=== PATIENT | female | born 1970 ===

== ENCOUNTER 2020-12-02 09:09 | Day surgery (SDC) | payer BC, OTHER ==
[~2020-12-02 09:09] MED LIST: Dexamethasone 4 MG/ML 5 ML MDV ONE; Glycopyrrolate 0.2 MG/ML SDV ONE; Lidocaine 2% 5 ML SDV ONE; Midazolam 1 MG/ML 2 ML SDV ONE; Ondansetron 4 MG/2 ML SDV ONE; Propofol 200 MG/20 ML SDV ONE; Rocuronium Bromide 50 MG/5 ML Syringe ONE; Sodium Chloride 0.9% 10 ML SDV IV PRN; Sodium Chloride 0.9% 10 ML Syringe FLUSH PRN; Sodium Chloride 0.9% 2.5 ML Syringe FLUSH PRN; ceFAZolin 1 GM in Premix Bag 1 BAG IV ONE; fentaNYL 250 MCG/5 ML SDV ONE
[2020-12-02] MEDS ORDERED: Bupivacaine 0.25% 10 ML SDV ONE (09:16)
[2020-12-02] MEDS ORDERED: Octyl 2-Cyanoacrylate 1 Tube ONE (09:16)
[2020-12-02] MEDS ORDERED: Fluorescein 5 ML Vial ONE (09:16)
[2020-12-02] MEDS ORDERED: Methylene Blue 50 MG/10 ML Ampule ONE (09:16)
--- NOTE | 2020-12-02 09:39 | PCM.PREANE ---
Preanesthetic Assessment - Anesthesia/Transfusion/Family Hx Anesthesia History: Prior Anesthesia Without Reaction Family History of Anesthesia Reaction: No Transfusion History: Prior Transfusion Without Reaction - Review of Systems General: No Symptoms Pulmonary: No Symptoms Cardiovascular: No Symptoms Gastrointestinal: No Symptoms Neurological: No Symptoms Other: Reports: None - Physical Assessment NPO Status Date: 12/01/20 Vital Signs: Last Vital Signs Temp 98.4 F 12/02/20 09:15 Pulse 81 12/02/20 09:15 Resp 16 12/02/20 09:15 BP 135/71 12/02/20 09:15 Pulse Ox 99 12/02/20 09:15 Height: 5 ft 2 in Weight: 76.657 kg ASA Class: 2 Mental Status: Alert & Oriented x3 Airway Class: Mallampati = 2 Dentition: Reports: Edentulous ROM/Head Extension: Full Lungs: Clear to Auscultation, Normal Respiratory Effort Cardiovascular: Regular Rate, Regular Rhythm - Lab Values: Laboratory Last Values SARS-CoV-2 RNA (ARNIE) NEGATIVE (NEGATIVE) 12/02/20 08:10 - Allergies Allergies/Adverse Reactions: Allergies Allergy/AdvReac Type Severity Reaction Status Date / Time No Known Allergies Allergy Verified 11/26/20 11:25 - Blood Blood Available: Yes - Anesthesia Plan Pre-Op Medication Ordered: None - Acknowledgements Anesthesia Type Planned: General Anesthesia Pt an Appropriate Candidate for the Planned Anesthesia: Yes Alternatives and Risks of Anesthesia Discussed w Pt/Guardian: Yes Pt/Guardian Understands and Agrees with Anesthesia Plan: Yes PreAnesthesia Questionnaire HEENT History: Reports: Other (See Below) Other HEENT History: has upper and lower dentures Gastrointestinal History: Reports: None 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: Psychiatric History: Reports: Anxiety - Past Surgical History Head Surgeries/Procedures: Reports: None GI Surgical History: Reports: Bariatric Procedure Female Surgical History: Reports: Section, Salpingo-Oophorectomy - SUBSTANCE USE Tobacco Use Status *Q: Never Tobacco User Recreational Drug Use History: Yes Recreational Drug Type: Reports: Marijuana/Hashish - HOME MEDS Home Medications: Home Meds Multivitamin 1 tab PO DAILY 11/26/20 [History] Venlafaxine [Effexor XR] 150 mg PO DAILY 11/26/20 [History] - CURRENT (IN HOUSE) MEDS Current Meds: Current Medications Sodium Chloride (Saline Flush) 10 ml FLUSH ASDIRECTED PRN PRN Reason: Keep Vein Open Sodium Chloride (Saline Flush) 2.5 ml FLUSH ASDIRECTED PRN PRN Reason: Keep Vein Open Sodium Chloride (Normal Saline) 10 ml IV ASDIRECTED PRN PRN Reason: IV Use Discontinued Medications Bupivacaine HCl (Sensorcaine-Mpf 0.25%) Confirm Administered Dose 10 ml .ROUTE .STK-MED ONE Stop: 12/02/20 09:17 Dexamethasone (Dexamethasone) Confirm Administered Dose 20 mg .ROUTE .STK-MED ONE Stop: 12/02/20 07:19 Fentanyl (Sublimaze) Confirm Administered Dose 250 mcg .ROUTE .STK-MED ONE Stop: 12/02/20 07:14 Fluorescein Sodium (Ak-Fluor) Confirm Administered Dose 5 ml .ROUTE .STK-MED ONE Stop: 12/02/20 09:17 Glycopyrrolate (Robinul) Confirm Administered Dose 0.4 mg .ROUTE .STK-MED ONE Stop: 12/02/20 07:17 Cefazolin Sodium/Dextrose 1 gm (/ Premix) 50 mls @ 100 mls/hr IV ONETIME ONE Stop: 12/02/20 05:29 Lidocaine (Xylocaine-Mpf 2%) Confirm Administered Dose 5 ml .ROUTE .STK-MED ONE Stop: 12/02/20 07:17 Methylene Blue (Provayblue) Confirm Administered Dose 50 mg .ROUTE .STK-MED ONE Stop: 12/02/20 09:17 Midazolam HCl (Versed 1 Mg/Ml) Confirm Administered Dose 2 mg .ROUTE .STK-MED ONE Stop: 12/02/20 07:13 Octyl Cyanoacrylate (Dermabond Advance) Confirm Administered Dose 1 applic .ROUTE .STK-MED ONE Stop: 12/02/20 09:17 Ondansetron HCl (Zofran) Confirm Administered Dose 4 mg .ROUTE .STK-MED ONE Stop: 12/02/20 07:17 Propofol (Diprivan 20 Ml) Confirm Administered Dose 200 mg .ROUTE .STK-MED ONE Stop: 12/02/20 07:13 Rocuronium Venice (Rocuronium Venice) Confirm Administered Dose 50 mg .ROUTE .STK-MED ONE Stop: 12/02/20 07:17
[2020-12-02] MEDS ORDERED: Lactated Ringers 1,000 ML IV SCH (09:45)
[2020-12-02] MEDS ORDERED: Sodium Chloride 0.9% 20 ML ONE (09:54)
[2020-12-02] MEDS ORDERED: ceFAZolin 1 GM Vial ONE (09:54)
[2020-12-02 10:14] LABS: CARBON DIOXIDE,CO2 23.4 mmol/L (21.0-32.0); POTASSIUM,K 3.9 mmol/L (3.5-5.1)
[2020-12-02] MEDS ORDERED: ePHEDrine 50 MG/ML SDV ONE (10:24)
[2020-12-02] MEDS ORDERED: Furosemide 40 MG/4 ML VIAL ONE ×2 (10:48→11:36)
[2020-12-02] MEDS ORDERED: fentaNYL 100 MCG/2 ML SDV ONE (11:00)
[2020-12-02] MEDS ORDERED: Ketorolac 30 MG/ML SDV ONE (11:46)
[2020-12-02] MEDS ORDERED: Morphine 4 MG/ML Syringe IVPUSH PRN (12:15)
[2020-12-02] MEDS ORDERED: Ketorolac 30 MG/ML SDV IVPUSH ONE (12:15)
[2020-12-02] MEDS ORDERED: Acetaminophen/oxyCODONE 325-5 MG Tab PO PRN (12:15)
[2020-12-02] MEDS ORDERED: Belladonna Alkaloids/Opium 16.2-30 MG Supp RECTAL PRN (12:15)
[2020-12-02] MEDS ORDERED: Promethazine 25 MG/ML SDV IM PRN (12:15)
[2020-12-02] MEDS ORDERED: Ondansetron 4 MG/2 ML SDV IVPUSH PRN (12:15)
--- NOTE | 2020-12-02 12:18 | PCM.OPNOTE ---
- General Post-Op/Procedure Note Date of Surgery/Procedure: 12/02/20 Operative Procedure(s): Laparoscopic assisted vaginal hysterectomy, left salpingectomy, and cystoscopy Findings: Dense uterovesical adhesions present and taken down. Left ovary appeared normal. Bilaterally patent ureters. Pre Op Diagnosis: Menometrorrhagia Post-Op Diagnosis: Same Anesthesia Technique: General ET Tube Primary Surgeon: Dannielle Shell Secondary Surgeon: Maurisio Payne Audio Visual Aide: Maria E Kaur ([id number]) Pathology: Uterus and left fallopian tube Fluid Replacement, Intraop: 1,500 Output, Urine Amount: 60 EBL in mLs: 150 Complications: none known Condition: Stable
[2020-12-02] MEDS: HYDROmorphone 2 MG/ML Syringe IVPUSH ONE ×5 (12:23→12:46)
--- NOTE | 2020-12-02 13:02 | PCM.POSTAN ---
POST ANESTHESIA ASSESSMENT - MENTAL STATUS Mental Status: Alert, Oriented - VITAL SIGNS Vital Signs: Last Vital Signs Temp 36.9 C 12/02/20 09:15 Pulse 72 12/02/20 12:54 Resp 9 L 12/02/20 12:54 BP 145/65 H 12/02/20 12:54 Pulse Ox 100 12/02/20 12:54 - RESPIRATORY Respiratory Status: Respiratory Rate WNL, Airway Patent, O2 Saturation Stable - CARDIOVASCULAR CV Status: Pulse Rate WNL, Blood Pressure Stable - GASTROINTESTINAL GI Status: No Symptoms - PAIN Pain Score: 5 - POST OP HYDRATION Hydration Status: Adequate & Stable - OBSERVATIONS Free Text/Narrative:: No anesthesia complications or concerns noted at this time.
[2020-12-02] MEDS: Lactated Ringers 1,000 ML IV SCH ×2 (13:38→21:35)
--- NOTE | 2020-12-02 16:04 | OR ---
SURGEON: Dannielle Shell M.D. DATE OF PROCEDURE: 12/02/2020 PREOPERATIVE DIAGNOSES: Menometrorrhagia with associated anemia. POSTOPERATIVE DIAGNOSES: Menometrorrhagia with associated anemia. PROCEDURE: Laparoscopic-assisted vaginal hysterectomy, left salpingectomy, cystoscopy, and uterovesical adhesiolysis. PRIMARY SURGEON: Dannielle Shell M.D. ASSISTANTS: 1. MD Elmer. 2. Second assist: Nadira Kaur MS-4. ANESTHESIA: General endotracheal anesthesia. FLUIDS: 1500 mL of crystalloid. ESTIMATED BLOOD LOSS: 150 mL. COMPLICATIONS: None known. FINDINGS: Dense uterovesical adhesions from previous sections. Normal-appearing left ovary. Bilateral patent ureters with cystoscopy. DISPOSITION: The patient to PACU, stable. SPECIMENS: To pathology. DESCRIPTION OF PROCEDURE: Santo is a 50-year-old female who has had difficulties with menometrorrhagia and having significant iron-deficiency anemia. At this time, she would like to proceed with definitive intervention in the form of hysterectomy. Risks of procedure have been discussed. Proper consent obtained. The patient was taken to the operating where she underwent general endotracheal anesthesia, was placed in modified dorsal lithotomy position, and prepped and draped in the usual sterile fashion. SCDs to the lower extremities. Malagon to gravity, backfilled with methylene blue. Received Ancef prophylactically. Time- out was performed. At the time of the time-out being performed, the room humidity was 28%. Speculum was introduced in the vagina. Anterior lip of the cervix was grasped with a single-tooth tenaculum. The cervix gently dilated to 5 mm. HUMI uterine manipulator was now gently placed. Balloon insufflated. Tenaculum and speculum were now removed. Gloves changed. Attention was turned abdominally. Infraumbilically introduced 0.25% Marcaine. Please see nurse's notes for total amount dispensed during the procedure. A 5 mm infraumbilical midline sagittal skin incision was created, dissected down to the level of the fascia with hemostats, and then introducing a 5 mm trocar under direct visualization with laparoscope in place, gently tunneled through the subcutaneous tissue to the level of rectus fascia and through the peritoneum. Pneumoperitoneum was achieved. We could not visualize easily at this point. Therefore, I did place a left upper quadrant trocar after prepping this region with 0.25% Marcaine, creating 5 mm skin incision noting where the midline of the left clavicle was, and having anesthesia placed an OG tube. A Veress needle was introduced. Pneumoperitoneum was achieved, and a 5 mm trocar was introduced. I could more easily see the peritoneal cavity at this time. There was a significant amount of anterior abdominal wall uterine adhesions noted from previous sections. Of note, could more easily see placement from the left and right lower quadrant trocars. These regions were prepped with 0.25% Marcaine. A 5 mm skin incision was made and trocars introduced under direct visualization. To start, initially adhesed the fairly dense omental anterior abdominal wall adhesions that were also involving the uterus. Using LigaSure, I was able to lyse these adhesions, and this made the uterus more mobile. As to be anticipated, there was no right tube or ovary present. The ureters were seen peristalsing well away from operative field. The left fallopian tube was able to be isolated and using LigaSure was able to secure the left fallopian tube and cauterize and transect through the mesosalpinx. At this juncture, I was able to secure the rest of the utero tubo-ovarian pedicle, cauterize and transect, mobilize it through the upper portion of the medial broad ligament, secured this pedicle, cauterized and transected and through the round ligament. At this point, the adhesions were now to this level and performed adhesiolysis using LigaSure, blunt dissection and hydrodissection to mobilize the adhesions from the anterior lower uterine segment and cervical region. I was able to secure 2 further pedicles on the left side before turning attention to the right side. I was able to come down the midline with LigaSure to secure the broad ligament through the round ligament, base of the cardinal ligament, and to the level of the uterosacral ligament on this side. Once again, was able to mobilize adhesions away from the uterine segment. I felt it to be best to actually enter the anterior cul-de-sac vaginally with laparoscopic assistance. Therefore, attention was turned vaginally. A weighted speculum was introduced, anterior Pinetta sidewall retractor. The cervix was now grasped with Jovanny clamps and circumscribed with Bovie cautery. Anterior and posteriorly the overlying mucosa was dissected away from underlying peritoneum. Anterior peritoneum was gently dissected bluntly and with Metzenbaum scissors was able to enter the anterior cul-de-sac, and ensured entry laparoscopically. The bladder appeared to be intact. The bladder was now released as I had them backfilled with methylene blue. The Pinetta mobilized the bladder away from the operative field. The pneumoperitoneum was now able to be released. The remainder of instruments were removed laparoscopically. Posterior peritoneum was tented downward and entered sharply. Longer weighted speculum was replaced with shorter. Uterosacral ligament on each side was secured with Bishop clamps, transected, and suture ligated with 2-0 Vicryl. Further pedicle on either side was able to be secured, transected, and suture ligated. Final pedicle on either side was able to be secured, transected, and suture ligated. The uterus was now able to be removed along with left fallopian tube and handed off to technical data analyst to be sent to Pathology. There was some oozing near the right uterosacral ligament pedicle. This was secured with a 2-0 Vicryl [id number] suture. Hemostasis thereafter evident. The pedicles along the left side appeared hemostatic. The uterosacral ligaments on either side were plicated to the vaginal apex with suture. Attention was now turned to closing the vaginal cuff using 0 Vicryl in continuous running locked fashion. The Malagon catheter balloon was now desufflated. Malagon was removed. Cystoscope was introduced using normal saline as distention media, and IV fluorescein had been introduced. The dome of the bladder was able to be identified. The dome of bladder appeared to be intact, followed down to the level of the trigone. The right ureteral orifice followed by the left ureteral orifice were able to be visualized, and fluorescein-dyed urine was seen streaming from these, helping to ensure ureteral patency. The bladder was now drained. The Malagon catheter was replaced. Vaginal cuff once again inspected, found to be hemostatic. Gloves changed. Attention turned abdominally. The pelvis was once again inspected laparoscopically and copiously irrigated. The pelvis was drained. Relief pressure decreased to 6 mmHg and once again hemostasis evident. The pneumoperitoneum was able to be released. The trocars removed under direct visualization. The trocar skin incisions were now reapproximated using 3-0 Monocryl in subcuticular fashion. Sponge, instrument, and needle counts correct x2. The patient tolerated the procedure well overall. She will go to PACU in stable condition. Specimen to Pathology. MAXWELL / ANTONY /[id number]
[2020-12-02] MEDS ORDERED: Ketorolac 15 MG/ML SDV IVPUSH PRN (18:00)
--- NOTE | 2020-12-02 18:09 | PCM.SN.2 ---
- Free Text/Narrative Note: Doing well overall, tolerating a regular diet. Has some cramping. Urine output is good and VS are reassuring. Expalined intraoperative findings and procedure. Continue postoperative cares. Labs in am, remve frederick in am.
[2020-12-02] MEDS: Acetaminophen/oxyCODONE 325-5 MG Tab PO PRN (18:47)
[2020-12-03] MEDS: Acetaminophen/oxyCODONE 325-5 MG Tab PO PRN ×3 (01:27→09:46)
[2020-12-03 05:57] LABS: BLOOD UREA NITROGEN,BUN 8 mg/dL (7.0-18.0); CHLORIDE,CL 106 mmol/L (98-107); GLUCOSE RANDOM 91 mg/dL (74-106); POTASSIUM,K 4.6 mmol/L (3.5-5.1); SODIUM,NA 139 mmol/L (136-145)
--- NOTE | 2020-12-03 08:08 | PCM48HPAN ---
Post Anesthesia Note - EVALUATION WITHIN 48HRS OF ANESTHETIC Vital Signs in Normal Range: Yes Patient Participated in Evaluation: Yes Respiratory Function Stable: Yes Airway Patent: Yes Cardiovascular Function Stable: Yes Hydration Status Stable: Yes Pain Control Satisfactory: Yes Nausea and Vomiting Control Satisfactory: Yes Mental Status Recovered: Yes Vital Signs: Last Vital Signs Temp 36.4 C 12/03/20 07:45 Pulse 77 12/03/20 07:45 Resp 17 12/03/20 07:45 BP 133/85 12/03/20 07:45 Pulse Ox 97 12/03/20 07:45 - COMMENTS/OBSERVATIONS Free Text/Narrative:: No anesthesia complications or concerns noted.
--- NOTE | 2020-12-03 08:28 | PCM.SURGPN ---
- General Info Date of Service: 12/03/20 POD#: 1 Functional Status: Reports: Pain Controlled, Tolerating Diet, Ambulating, Urinating - Review of Systems General: Reports: Fatigue. Denies: Fever, Weakness Pulmonary: Denies: Shortness of Breath Cardiovascular: Denies: Chest Pain, Palpitations, Lightheadedness Gastrointestinal: Reports: Abdominal Pain (mostly cramping). Denies: Nausea, Vomiting Genitourinary: Denies: Flank Pain Musculoskeletal: Reports: No Symptoms Skin: Reports: No Symptoms Neurological: Reports: No Symptoms Psychiatric: Reports: No Symptoms - Patient Data Vitals - Most Recent: Last Vital Signs Temp 36.4 C 12/03/20 07:45 Pulse 77 12/03/20 07:45 Resp 17 12/03/20 07:45 BP 133/85 12/03/20 07:45 Pulse Ox 97 12/03/20 07:45 Weight - Most Recent: 76.657 kg I&O - Last 24 Hours: Intake & Output 12/02/20 12/03/20 12/03/20 22:59 06:59 14:59 Intake Total 350 2436 Output Total 525 2050 Balance -175 386 Lab Results Last 24 Hrs: Laboratory Results - last 24 hr 12/02/20 12/02/20 12/02/20 Range/Units 08:10 09:35 09:35 WBC 5.94 (4.0-11.0) K/uL RBC 5.23 (4.30-5.90) M/uL Hgb 11.8 L (12.0-16.0) g/dL Hct 41.9 (36.0-46.0) % MCV 80.1 (80.0-98.0) fL MCH 22.6 L (27.0-32.0) pg MCHC 28.2 L (31.0-37.0) g/dL RDW Std Deviation 62.1 H (28.0-62.0) fl RDW Coeff of Vikram 22 H (11.0-15.0) % Plt Count 373 (150-400) K/uL MPV 10.50 (7.40-12.00) fL Neut % (Auto) (48.0-80.0) % Lymph % (Auto) (16.0-40.0) % Rogers % (Auto) (0.0-15.0) % Eos % (Auto) (0.0-7.0) % Baso % (Auto) (0.0-1.5) % Neut # (Auto) (1.4-5.7) K/uL Lymph # (Auto) (0.6-2.4) K/uL Rogers # (Auto) (0.0-0.8) K/uL Eos # (Auto) (0.0-0.7) K/uL Baso # (Auto) (0.0-0.1) K/uL Nucleated RBC % 0.0 /100WBC Nucleated RBCs # 0 K/uL Sodium 140 (136-145) mmol/L Potassium 3.9 (3.5-5.1) mmol/L Chloride 106 (98-107) mmol/L Carbon Dioxide 23.4 (21.0-32.0) mmol/L BUN 15 (7.0-18.0) mg/dL Creatinine 1.3 H (0.6-1.0) mg/dL Est Cr Clr Drug Dosing 40.95 mL/min Estimated GFR (MDRD) 43.4 ml/min Glucose 77 (74-106) mg/dL Calcium 9.2 (8.5-10.1) mg/dL SARS-CoV-2 RNA (ARNIE) NEGATIVE (NEGATIVE) Blood Type Antibody Screen 12/02/20 12/03/20 12/03/20 Range/Units 09:35 05:27 05:27 WBC 5.93 (4.0-11.0) K/uL RBC 3.87 L (4.30-5.90) M/uL Hgb 8.9 L (12.0-16.0) g/dL Hct 31.0 L (36.0-46.0) % MCV 80.1 (80.0-98.0) fL MCH 23.0 L (27.0-32.0) pg MCHC 28.7 L (31.0-37.0) g/dL RDW Std Deviation 61.7 (28.0-62.0) fl RDW Coeff of Vikram 22 H (11.0-15.0) % Plt Count 376 (150-400) K/uL MPV 10.80 (7.40-12.00) fL Neut % (Auto) 68.4 (48.0-80.0) % Lymph % (Auto) 20.2 (16.0-40.0) % Rogers % (Auto) 9.6 (0.0-15.0) % Eos % (Auto) 1.5 (0.0-7.0) % Baso % (Auto) 0.3 (0.0-1.5) % Neut # (Auto) 4.1 (1.4-5.7) K/uL Lymph # (Auto) 1.2 (0.6-2.4) K/uL Rogers # (Auto) 0.6 (0.0-0.8) K/uL Eos # (Auto) 0.1 (0.0-0.7) K/uL Baso # (Auto) 0.0 (0.0-0.1) K/uL Nucleated RBC % 0.0 /100WBC Nucleated RBCs # 0 K/uL Sodium 139 (136-145) mmol/L Potassium 4.6 (3.5-5.1) mmol/L Chloride 106 (98-107) mmol/L Carbon Dioxide 28.0 (21.0-32.0) mmol/L BUN 8 (7.0-18.0) mg/dL Creatinine 0.8 (0.6-1.0) mg/dL Est Cr Clr Drug Dosing 66.54 mL/min Estimated GFR (MDRD) > 60.0 ml/min Glucose 91 (74-106) mg/dL Calcium 8.5 (8.5-10.1) mg/dL SARS-CoV-2 RNA (ARNIE) (NEGATIVE) Blood Type A POSITIVE Antibody Screen NEGATIVE Med Orders - Current: Current Medications Belladonna Alkaloids/Opium (B & O Supprettes No. 15a) 1 supp RECTAL Q4H PRN PRN Reason: Abdominal Pain Lactated Ringer's (Ringers, Lactated) 1,000 mls @ 125 mls/hr IV ASDIRECTED [facility] Last Admin: 12/02/20 21:35 Dose: 125 mls/hr Documented by: Ketorolac Tromethamine (Toradol) 15 mg IVPUSH Q6H PRN PRN Reason: Pain (severe 7-10) Last Admin: 12/02/20 22:14 Dose: 15 mg Documented by: Morphine Sulfate (Morphine) 4 mg IVPUSH Q2H PRN PRN Reason: Pain (severe 7-10) Last Admin: 12/02/20 16:18 Dose: 4 mg Documented by: Ondansetron HCl (Zofran) 4 mg IVPUSH Q6H PRN PRN Reason: Nausea/Vomiting Oxycodone/Acetaminophen (Percocet 325-5 Mg) 1 tab PO Q4H PRN PRN Reason: Pain (moderate 4-6) Oxycodone/Acetaminophen (Percocet 325-5 Mg) 2 tab PO Q4H PRN PRN Reason: Pain (moderate 4-6) Last Admin: 12/03/20 05:51 Dose: 2 tab Documented by: Promethazine HCl (Phenergan) 25 mg IM Q6H PRN PRN Reason: Nausea/Vomiting Sodium Chloride (Saline Flush) 10 ml FLUSH ASDIRECTED PRN PRN Reason: Keep Vein Open Sodium Chloride (Saline Flush) 2.5 ml FLUSH ASDIRECTED PRN PRN Reason: Keep Vein Open Sodium Chloride (Normal Saline) 10 ml IV ASDIRECTED PRN PRN Reason: IV Use Discontinued Medications Bupivacaine HCl (Sensorcaine-Mpf 0.25%) Confirm Administered Dose 10 ml .ROUTE .STK-MED ONE Stop: 12/02/20 09:17 Cefazolin Sodium (Ancef) Confirm Administered Dose 1 gm .ROUTE .STK-MED ONE Stop: 12/02/20 09:55 Dexamethasone (Dexamethasone) Confirm Administered Dose 20 mg .ROUTE .STK-MED ONE Stop: 12/02/20 07:19 Ephedrine Sulfate (Ephedrine Sulfate) Confirm Administered Dose 0 mg .ROUTE .STK-MED ONE Stop: 12/02/20 10:25 Fentanyl (Sublimaze) Confirm Administered Dose 250 mcg .ROUTE .STK-MED ONE Stop: 12/02/20 07:14 Fentanyl (Sublimaze) Confirm Administered Dose 100 mcg .ROUTE .STK-MED ONE Stop: 12/02/20 11:01 Fluorescein Sodium (Ak-Fluor) Confirm Administered Dose 5 ml .ROUTE .STK-MED ONE Stop: 12/02/20 09:17 Furosemide (Lasix) Confirm Administered Dose 0 mg .ROUTE .STK-MED ONE Stop: 12/02/20 10:49 Furosemide (Lasix) Confirm Administered Dose 40 mg .ROUTE .STK-MED ONE Stop: 12/02/20 11:37 Glycopyrrolate (Robinul) Confirm Administered Dose 0.4 mg .ROUTE .[facility]-MED ONE Stop: 12/02/20 07:17 Hydromorphone HCl (Dilaudid) 2 mg IVPUSH ONETIME ONE Stop: 12/02/20 12:15 Last Admin: 12/02/20 12:46 Dose: 0.4 mg Documented by: Lactated Ringer's (Ringers, Lactated) 1,000 mls @ 100 mls/hr IV ASDIRECTED RAJAN Last Admin: 12/02/20 09:30 Dose: 100 mls/hr Documented by: Sodium Chloride (Normal Saline) Confirm Administered Dose 20 mls @ as directed .ROUTE .[facility]-MED ONE Stop: 12/02/20 09:55 Cefazolin Sodium/Dextrose 1 gm (/ Premix) 50 mls @ 100 mls/hr IV ONETIME ONE Stop: 12/02/20 05:29 Last Admin: 12/02/20 19:03 Dose: Not Given Documented by: Ketorolac Tromethamine (Toradol) Confirm Administered Dose 30 mg .ROUTE .ST-MED ONE Stop: 12/02/20 11:47 Ketorolac Tromethamine (Toradol) 30 mg IVPUSH ONETIME ONE Stop: 12/02/20 12:16 Last Admin: 12/02/20 14:13 Dose: 15 mg Documented by: Lidocaine (Xylocaine-Mpf 2%) Confirm Administered Dose 5 ml .ROUTE .ST-MED ONE Stop: 12/02/20 07:17 Methylene Blue (Provayblue) Confirm Administered Dose 50 mg .ROUTE .ST-MED ONE Stop: 12/02/20 09:17 Midazolam HCl (Versed 1 Mg/Ml) Confirm Administered Dose 2 mg .ROUTE .ST-MED ONE Stop: 12/02/20 07:13 Octyl Cyanoacrylate (Dermabond Advance) Confirm Administered Dose 1 applic .ROUTE .ST-MED ONE Stop: 12/02/20 09:17 Ondansetron HCl (Zofran) Confirm Administered Dose 4 mg .ROUTE .ST-MED ONE Stop: 12/02/20 07:17 Propofol (Diprivan 20 Ml) Confirm Administered Dose 200 mg .ROUTE .ST-MED ONE Stop: 12/02/20 07:13 Rocuronium Temple (Rocuronium Temple) Confirm Administered Dose 50 mg .ROUTE .STK-MED ONE Stop: 12/02/20 07:17 - Exam Wound/Incisions: Healing Well General: Alert, Oriented Lungs: Normal Respiratory Effort Cardiovascular: Regular Rate, Regular Rhythm GI/Abdominal Exam: Normal Bowel Sounds, Soft. No: Guarding, Rigid, Rebound Extremities: Pedal Edema (trace). No: Trang's Sign Skin: Warm, Dry, Intact Neurological: No New Focal Deficit Psy/Mental Status: Alert, Normal Affect, Normal Mood Sepsis Event Note - Evaluation Sepsis Screening Result: No Definite Risk - Focused Exam Vital Signs: Vital Signs Temp Pulse Resp BP Pulse Ox 12/03/20 07:45 36.4 C 77 17 133/85 97 12/03/20 04:17 36.6 C 72 18 122/73 98 12/03/20 01:32 36.8 C 71 17 139/58 L 98 - Problem List & Annotations (1) Status post hysterectomy SNOMED Code(s): 816784619, 503100798, 205172128 Code(s): Z90.710 - ACQUIRED ABSENCE OF BOTH CERVIX AND UTERUS Status: Acute Current Visit: Yes - Problem List Review Problem List Initiated/Reviewed/Updated: Yes - My Orders Last 24 Hours: Active Orders 24 hr Category Date Time Status Patient Status [ADT] Routine ADT 12/02/20 12:15 Active Notify Provider Intake and Out [RC] ASDIRECTED Care 12/02/20 12:15 Active Notify Provider Vital Signs [RC] ASDIRECTED Care 12/02/20 12:15 Active Oxygen Therapy [RC] ASDIRECTED Care 12/02/20 12:15 Active RT Incentive Spirometry [RC] Q2HWA Care 12/02/20 12:15 Active Ready for Discharge [RC] PER UNIT ROUTINE Care 12/03/20 08:24 Ordered Up With Assistance [RC] PER UNIT ROUTINE Care 12/02/20 12:15 Active Up ad Syl [RC] PER UNIT ROUTINE Care 12/02/20 12:15 Active Urinary Catheter Removal [RC] Per Unit Routine Care 12/02/20 12:15 Active Vital Signs [RC] PER UNIT ROUTINE Care 12/02/20 12:15 Active Regular Diet [DIET] Diet 12/02/20 Dinner Active Acetaminophen/oxyCODONE [Percocet 325-5 MG] Med 12/02/20 12:15 Active 1 tab PO Q4H PRN Acetaminophen/oxyCODONE [Percocet 325-5 MG] Med 12/02/20 12:15 Active 2 tab PO Q4H PRN Belladonna/Opium [B & O Supprettes No. 15A] Med 12/02/20 12:15 Active 1 supp RECTAL Q4H PRN Ketorolac [Toradol] Med 12/02/20 18:00 Active 15 mg IVPUSH Q6H PRN Lactated Ringers [Ringers, Lactated] 1,000 ml Med 12/02/20 12:15 Active IV ASDIRECTED Morphine Med 12/02/20 12:15 Active 4 mg IVPUSH Q2H PRN Ondansetron [Zofran] Med 12/02/20 12:15 Active 4 mg IVPUSH Q6H PRN Promethazine [Phenergan] Med 12/02/20 12:15 Active 25 mg IM Q6H PRN Perineal Care [OM.PC] Per Unit Routine Oth 12/02/20 12:16 Ordered Peripheral IV Discontinue [OM.PC] Routine Oth 12/02/20 12:15 Ordered Sequential Compression Device [OM.PC] Per Unit Routine Oth 12/02/20 12:15 Ordered Resuscitation Status Routine Resus Stat 12/02/20 12:15 Ordered Medication Orders Belladonna Alkaloids/Opium (B & O Supprettes No. 15a) 1 supp RECTAL Q4H PRN PRN Reason: Abdominal Pain Lactated Ringer's (Ringers, Lactated) 1,000 mls @ 125 mls/hr IV ASDIRECTED RAJAN Last Admin: 12/02/20 21:35 Dose: 125 mls/hr Documented by: Infusion: 12/02/20 21:35 Dose: 125 mls/hr Documented by: Admin: 12/02/20 13:38 Dose: 125 mls/hr Documented by: MIKAEL Ketorolac Tromethamine (Toradol) 15 mg IVPUSH Q6H PRN PRN Reason: Pain (severe 7-10) Last Admin: 12/02/20 22:14 Dose: 15 mg Documented by: LAURENT Morphine Sulfate (Morphine) 4 mg IVPUSH Q2H PRN PRN Reason: Pain (severe 7-10) Last Admin: 12/02/20 16:18 Dose: 4 mg Documented by: MIKAEL Ondansetron HCl (Zofran) 4 mg IVPUSH Q6H PRN PRN Reason: Nausea/Vomiting Oxycodone/Acetaminophen (Percocet 325-5 Mg) 1 tab PO Q4H PRN PRN Reason: Pain (moderate 4-6) Oxycodone/Acetaminophen (Percocet 325-5 Mg) 2 tab PO Q4H PRN PRN Reason: Pain (moderate 4-6) Last Admin: 12/03/20 05:51 Dose: 2 tab Documented by: Admin: 12/03/20 01:27 Dose: 2 tab Documented by: Admin: 12/02/20 18:47 Dose: 2 tab Documented by: LEN Promethazine HCl (Phenergan) 25 mg IM Q6H PRN PRN Reason: Nausea/Vomiting Sodium Chloride (Saline Flush) 10 ml FLUSH ASDIRECTED PRN PRN Reason: Keep Vein Open Sodium Chloride (Saline Flush) 2.5 ml FLUSH ASDIRECTED PRN PRN Reason: Keep Vein Open Sodium Chloride (Normal Saline) 10 ml IV ASDIRECTED PRN PRN Reason: IV Use - Assessment Assessment (Free Text/Narrative):: POD 1 status post LAVH/left salpingectomy/uterovesicle adhesiolysis/cystoscopy - Plan Plan (Free Text/Narrative):: VS are reassuring. Labs reviewed, Hgb 8.9--will continue iron therapy. Creat inine has normalized with hydration. Patient would like to go home today. Discharge instructions reviewed. Follow up at [facility] 2 and 6 weeks. Infection and bleeding warnings reviewed. Discharge to home today.
== END 2020-12-03 09:55 | disposition home or self-care (01) ==
LOC: MW.SDS 09:09 → MW.MS 12:59 → MW.SDS 12-03 09:55
PROVIDERS: ATTEND Obstetrics & Gynecology
DX: D25.1 Intramural leiomyoma of uterus (principal); N80.0 Endometriosis of uterus; N83.8 Other noninflammatory disorders of ovary, fallopian tube and broad ligament; K66.0 Peritoneal adhesions (postprocedural) (postinfection); N92.1 Excessive and frequent menstruation with irregular cycle; D50.9 Iron deficiency anemia, unspecified; E66.3 Overweight; Z98.890 Other specified postprocedural states; Z98.84 Bariatric surgery status; Z01.812 Encounter for preprocedural laboratory examination; Z20.822 Contact with and (suspected) exposure to COVID-19; Z79.899 Other long term (current) drug therapy; Z68.30 Body mass index [BMI] 30.0-30.9, adult
CPT/HCPCS: 36415; 58552; 80048; 85025; 85027; 86850; 86900; 86901; 87635; 88307; A9270; J0690; J1100; J1170; J1885; J1940; J2250; J2270; J2704; J3010; J3490; J7120; 00944; J2405; U0002